=== PATIENT | male | born 1940 | race Caucasian/White ===

== ENCOUNTER → 2016-09-01 | Outpatient (CLI) | payer OTHER, MEDICARE | LOC: BHFA 09:15 | PROVIDERS: ATTEND Internal Medicine Cardiovascular Disease | DX: I25.10 Atherosclerotic heart disease of native coronary artery without angina pectoris (principal) ==

== ENCOUNTER 2017-01-06 09:24 | Day surgery (SDC) | payer OTHER, MEDICARE ==
--- NOTE | 2017-01-05 17:53 | PDHPUP ---
History & Physical Update H&P update statement: This history and physical update is based on an assessment of the patient which was completed after admission or registration (within 24 hours), but prior to the surgery/procedure. Updated
[2017-01-06] MEDS ORDERED: LIDOCAINE 1% 300 MG/30 ML SDV ONE (09:27)
[2017-01-06] MEDS ORDERED: SODIUM BICARBONATE 10 MEQ/10 ML SYR IVP ONE (09:28)
[2017-01-06] MEDS ORDERED: BUPIVACAINE 0.5% 30 ML SDV ONE (09:28)
[2017-01-06] MEDS ORDERED: ceFAZolin 2 GM/SWFI 2 GM/20 ML SYR IVP ONE (09:39)
[2017-01-06] MEDS ORDERED: LR 1,000 ML IV ONE (09:40)
[2017-01-06 09:50] VITALS: PULSE 62
[2017-01-06] MEDS ORDERED: fentaNYL 100 MCG/2 ML INJ ONE (10:23)
[2017-01-06] MEDS ORDERED: PROPOFOL/EMULSION 500 MG/50 ML BOTTLE IV ONE (10:23)
[2017-01-06] MEDS ORDERED: MIDAZOLAM 2 MG/2 ML VIAL ONE (10:25)
[2017-01-06] MEDS ORDERED: LIDOCAINE 2% 5 ML SDV ONE (10:28)
--- NOTE | 2017-01-06 10:40 | PDANEPAE ---
ANE History of Present Illness left inguinal hernia ANE Past Medical History - Cardiovascular History Hx Hypertension: Yes Hx Arrhythmias: Yes Hx Chest Pain: No Hx Coronary Artery / Peripheral Vascular Disease: Yes Hx CHF / Valvular Disease: Yes Hx Palpitations: No Cardiovascular History Comment: hx of pauses. - Pulmonary History Hx COPD: No Hx Asthma/Reactive Airway Disease: No Hx Recent Upper Respiratory Infection: No Hx Oxygen in Use at Home: No Hx Sleep Apnea: No Sleep Apnea Screening Result - Last Documented: Positive - Neurologic History Hx Cerebrovascular Accident: No Hx Seizures: No Hx Dementia: No - Endocrine History Hx Diabetes: No - Renal History Hx Renal Disorders: No - Liver History Hx Hepatic Disorders: No - Neurological & Psychiatric Hx Hx Neurological and Psychiatric Disorders: No - Cancer History Hx Cancer: Yes Cancer History Comment: prostate cancer - Congenital Disorder History Hx Congenital Disorders: No - GI History Hx Gastrointestinal Disorders: No - Other Health History Other Health History: none - Chronic Pain History Chronic Pain: No - Surgical History Prior Surgeries: [place] at age 31. R inguinal hernia repair age 42. bypass sx x 2 vessel age 49. Radical prostatectomy 2004 ANE Review of Systems Review of Systems: - Exercise capacity METS (RN): 4 METS ANE Patient History - Allergies Allergies/Adverse Reactions: CONTRAST MEDIA Allergy (Uncoded 01/04/17 15:28) - Home Medications Home medications: home medication list seen and reviewed Home Medications: Aspirin 01/04/17 [Last Taken Unknown] Carvedilol 01/04/17 [Last Taken Unknown] Lasix 01/04/17 [Last Taken Unknown] Ramipril 01/04/17 [Last Taken Unknown] - NPO status NPO Since - Liquids (Date): 01/06/17 NPO Since - Liquids (Time): 12:00 NPO Since - Solids (Date): 01/05/17 NPO Since - Solids (Time): 18:00 - Smoking Hx Smoking Status: Never smoked - Family Anes Hx Family Hx Anesthesia Complications: none ANE Labs/Vital Signs - Vital Signs Blood Pressure: 148/89 Heart Rate: 62 Respiratory Rate: 18 O2 Sat (%): 97 Height: 167.64 cm Weight: 70.307 kg ANE Physical Exam - Airway Neck exam: FROM Mallampati Score: Class 1 Mouth exam: normal dental/mouth exam - Pulmonary Pulmonary: no respiratory distress - Cardiovascular Cardiovascular: regular rate and rhythym - ASA Status ASA Status: II ANE Anesthesia Plan Anesthesia Plan: GA with mask Total IV Anesthesia: Yes Urgent/Emergent Case: Anes eval completed preop but documented later for safe timely pt care
[2017-01-06] MEDS ORDERED: OXYCODONE/APAP 5/325 TAB PO PRN (11:12)
[2017-01-06] MEDS ORDERED: fentaNYL 100 MCG/2 ML INJ IVP PRN (11:12)
[2017-01-06] MEDS ORDERED: NALOXONE HCL 0.4 MG/ML INJ IVP PRN (11:12)
[2017-01-06] MEDS ORDERED: HYDROmorphONE/DILAUDID 1 MG/ML INJ IVP PRN (11:12)
[2017-01-06] MEDS ORDERED: LR 500 ML IV PRN (11:12)
[2017-01-06] MEDS ORDERED: ACETAMINOPHEN 500 MG TAB PO PRN (11:12)
[2017-01-06] MEDS ORDERED: ONDANSETRON 4 MG/2 ML VIAL IVP PRN (11:12)
[2017-01-06] MEDS ORDERED: ALBUTEROL 3 ML DEYVIAL IH PRN (11:12)
[2017-01-06] MEDS ORDERED: HYDROCODONE/APAP 5/325 TAB PO PRN (11:12)
[2017-01-06] MEDS ORDERED: PROPOFOL 200 MG/20 ML VIAL ONE (11:27)
--- NOTE | 2017-01-06 12:01 | POSTOPPROG ---
Post Op Note Date of Operation: 01/06/17 Surgeon: Gabe Trejo Anesthesiologist: sandro Anesthesia: IV Sedation Pre-op Diagnosis: lih Post-op Diagnosis: same Indication: pain, enlargement Procedure: open lih repair with mesh Findings: direct slider with sigmoid Inf/Abcess present in the surg proc area at time of surgery?: No Depth: Deep Incisional (Fascial) EBL: Minimal Complications: 0 Specimen(s): lipoma
[2017-01-06] MEDS ORDERED: KETOROLAC 30 MG/1 ML SDV IVP ONE ×2 (12:02→12:04)
--- NOTE | 2017-01-06 12:05 | POSTANESTH ---
Post Anesthetic Evaluation Cardiovascular Status: Normal, Stable Respiratory Status: Normal, Stable Level of Consciousness/Mental Status: Can Participate in Eval Pain Control: Adequate, Prn Tx Ordered Nausea/Vomiting Control: Adequate, Prn Tx Ordered Complications Possibly Related to Anesthesia: None Noted
[2017-01-06] MEDS ORDERED: KETOROLAC 30 MG/1 ML SDV ONE (12:30)
[2017-01-06 12:50] VITALS: BP 128/72
[2017-01-06 13:09] VITALS: RESP 12
[2017-01-06 13:11] VITALS: TEMP 97.5
[2017-01-06 13:53] VITALS: O2SAT 99
--- NOTE | 2017-01-06 14:15 | GOP ---
[f rep st] OPERATIVE REPORT DATE OF OPERATION: 01/06/2017 SURGEON: Gabe Trejo MD LOG SNAKER: None. ANESTHESIOLOGIST: Dr. Bradley PREOPERATIVE DIAGNOSIS: Left inguinal hernia. POSTOPERATIVE DIAGNOSIS: Left inguinal hernia. PROCEDURE PERFORMED: Open left inguinal hernia repair with mesh. FINDINGS: The patient was found to have a direct slider with the sigmoid colon involved and a large lipoma of the cord. ESTIMATED BLOOD LOSS: Negligible. DESCRIPTION OF PROCEDURE: The patient was taken to the operating room where he received satisfactory IV sedation with monitored anesthesia care by Dr. Bradley. He was placed in the supine position an d prepped and draped in the usual sterile fashion. A field block was made with 0.5% Marcaine in the left inguinal area. An inguinal incision was made and carried through the subcutaneous tissue down t o the fascia. The area was re-infiltrated with 0.5% Marcaine and the external oblique was opened thr ough the external ring. The ilioinguinal nerve was identified and preserved. The cord was mobilized from the floor of the canal. A large lipoma was dissected free from the cord structures. It was li gated at the internal ring with 3-0 Vicryl ties and amputated. The hernia sac was dissected off the cord structures, although it appeared to be a more broad-based sac consistent with a direct defect an d an indirect defect. The sac was freed up and opened and there appeared to be a slider type hernia. The sigmoid colon was freed up from the posterior wall of the sac and reduced and the sac was then closed with a 3-0 Vicryl pursestring. The inguinal floor was then imbricated with interrupted 0 Surg ilon sutures and a Covidien polyester mesh [employer] Examiner patch was placed on the inguinal floor with a spl it patch around the cord structures. This was secured to the shelving edge of the inguinal ligament, to the lacunar ligament, to the internal oblique fascia, and all around the , which was th en wrapped with 0 Surgilon sutures. The wound was further infiltrated with 0.5% Marcaine. Excess me sh was trimmed away and the external oblique was closed with a running 2-0 Vicryl suture after replac ing the cord and nerve in the anatomic position. Hemostasis was assured and the subcu was closed wit h 3-0 Vicryl and the skin with a 4-0 Monocryl subcuticular stitch. COMPLICATIONS: None. DISPOSITION: He was taken to the recovery room in good condition. /[id number]/MODL
== END 2017-01-06 14:00 | disposition home or self-care (01) ==
LOC: FSGY 09:24
PROVIDERS: ATTEND Surgery
DX: K40.90 Unilateral inguinal hernia, without obstruction or gangrene, not specified as recurrent (principal); E78.5 Hyperlipidemia, unspecified; I25.10 Atherosclerotic heart disease of native coronary artery without angina pectoris
CPT/HCPCS: C1781; J0690; J1885; J2250; J2704; J3010

== ENCOUNTER → 2017-08-01 | Outpatient (CLI) | payer OTHER, MEDICARE | LOC: BHFA 08:30 | PROVIDERS: ATTEND Internal Medicine | DX: I25.10 Atherosclerotic heart disease of native coronary artery without angina pectoris (principal); I25.5 Ischemic cardiomyopathy ==

== ENCOUNTER → 2017-08-18 | Outpatient (CLI) | payer OTHER, MEDICARE | LOC: BHFA 09:00 | PROVIDERS: ATTEND Internal Medicine Interventional Cardiology | DX: I25.5 Ischemic cardiomyopathy (principal); I25.10 Atherosclerotic heart disease of native coronary artery without angina pectoris; R06.02 Shortness of breath; E78.5 Hyperlipidemia, unspecified | CPT/HCPCS: 78452; 93017; A9500; J2785 ==

== ENCOUNTER 2018-07-07 09:43 | Emergency (ER) | payer OTHER, MEDICARE | END 2018-07-07 12:08 | disposition home or self-care (01) ==